=== PATIENT | male | born 1965 | race Two or more races ===

== ENCOUNTER 2020-10-24 12:32 | Emergency (ER) | payer MEDICAID, OTHER ==
[~2020-10-24] VITALS: Ht 157.5 cm; Wt 73.9 kg
[2020-10-24 14:00] LABS: Basophils # (auto) 0 10 ^3/uL (0-0.2); Basophils % (auto) 0.4 % (0.0-2.0); Eosinophils # (auto) 0 10 ^3/uL (0-0.8); Eosinophils % (auto) 0.6 % (0.0-7.0); Lymphocytes # (auto) 0.8 10 ^3/uL (0.4-5.4); Lymphocytes % (auto) 10.7 % (10.0-50.0); Mean Corpuscular Hemoglobin 34.2 pg (28.0-32.0); Mean Corpuscular Hgb Conc. 34.8 g/dL (32.0-36.0); Mean Corpuscular Volume 98.4 fL (80.0-100.0); Monocytes # (auto) 0.4 10 ^3/uL (0-1.3); Monocytes % (auto) 5.2 % (0.0-12.0); Neutrophils # (auto) 6.6 10 ^3/uL (1.6-8.6); Neutrophils % (auto) 83.1 % (37.0-80.0); Platelet Count (auto) 265 10^3/uL (140-450); Red Blood Cells 4.68 10^6/uL (4.5-5.90); Red Cell Distribution Width 12.9 % (11.8-14.3); White Blood Cell 7.9 10^3/uL (4.4-10.8)
[2020-10-24 14:19] LABS: Albumin 4.1 g/dL (3.4-5.0); Potassium 3.6 mmol/L (3.5-5.1)
[2020-10-24 14:22] LABS: BUN/Creatinine Ratio 21.9
[2020-10-24 14:36] LABS: Total Protein 8.9 g/dL (6.4-8.2)
[2020-10-24 16:34] VITALS: BP 130/79
== END 2020-10-24 16:35 | disposition home or self-care (01) ==
LOC: ER 12:32
DX: R07.89 Other chest pain (principal); R06.02 Shortness of breath; R00.2 Palpitations
CPT/HCPCS: 36415; 71045; 80053; 84484; 85025; 93005

== ENCOUNTER 2021-11-06 14:56 | Emergency (ER) | payer SELFPAY ==
[~2021-11-06] VITALS: Ht 160 cm; Wt 72.6 kg
[2021-11-06 16:13] VITALS: BP 119/86
[2021-11-06] MEDS ORDERED: ACYC-161 PO (17:38)
== END 2021-11-06 18:09 | disposition home or self-care (01) ==
LOC: ER 14:56
DX: B00.9 Herpesviral infection, unspecified (principal)